=== PATIENT | female | born 1975 | race Caucasian/White ===

== ENCOUNTER 2018-04-24 11:43 | Emergency (ER) | payer OTHER ==
[~2018-04-24] VITALS: Ht 172.7 cm; Wt 70.8 kg
[2018-04-24 12:23] LABS: URINE BILIRUBIN NEGATIVE (Negative); URINE BLOOD NEGATIVE (Negative); URINE CLARITY CLEAR; URINE COLOR YELLOW; URINE GLUCOSE-RANDOM* NEGATIVE (Negative); URINE KETONES TRACE (Negative); URINE LEUKOCYTES-REFLEX TRACE (Negative); URINE NITRITE-REFLEX NEGATIVE (Negative); URINE PROTEIN (DIPSTICK) NEGATIVE (Negative); URINE SPECIFIC GRAVITY >= 1.030 (1.005-1.035); URINE UROBILINOGEN 0.2 E.U./dl (0.2-1.0)
[2018-04-24 12:40] LABS: ABSOLUTE NEUTROPHILS 2.5 thou/uL (1.4-8.2); BASOPHILS 0.5 % (0.0-2.0); EOSINOPHILS 2.4 % (0.0-3.0); HEMATOCRIT 36.5 % (37.0-47.0); HEMOGLOBIN 12.2 gm/dL (12.0-15.0); LYMPHOCYTES 34.6 % (24.0-44.0); MCH 30.6 pg (26.0-34.0); MCHC 33.3 g/dL (28.0-37.0); MCV 91.9 fL (80.0-100.0); MONOCYTES 11.8 % (1.0-8.0); PLATELET COUNT 144 thou/uL (150-400); POLYS 50.7 % (36.0-66.0); RBC 3.98 mil/uL (4.20-5.00); RDW 13.5 % (10.5-14.5); WBC 4.9 thou/uL (4.0-11.0)
[2018-04-24 12:51] LABS: CALCIUM 8.7 mg/dL (8.5-10.1); CREATININE 0.7 mg/dL (0.6-1.0); POTASSIUM 4.2 mmol/L (3.5-5.1)
[2018-04-24 12:57] LABS: ALBUMIN 3.7 g/dL (3.4-5.0); TOTAL BILIRUBIN 0.3 mg/dL (<0.1-1.0); TOTAL PROTEIN 6.8 g/dL (6.4-8.2)
[2018-04-24] MEDS ORDERED: NORCO 10-325 T1 EACH PO (16:01)
[2018-04-24] MEDS ORDERED: LEVSIN0.125 MG PO (16:01)
[2018-04-24 18:31] VITALS: BP 106/53
--- NOTE | 2018-04-25 10:57 | EKG ---
[address] [employer] [place] [address] ELECTROCARDIOGRAM REPORT Name: CHANTAL JAMES Room [facility]: [facility] [id number] ������������������ Admission: 04/24/18 ������������������ Attend Phys: Discharge: 04/24/18 ������������������ Date of : 79 Report #: [id number] ����������������������������������������������������������������� [id number] THIS REPORT FOR: //name// [facility] ED Test Date: 2018-04-24 Test Time: 13:04:13 Pat Name: CHANTAL JAMES Department: Room: Gender: F Clinic Supervisor: JV : 1975 Requested By: Mita Dunne Order Number: [id number] MD: Abelino Ambrocio Measurements Intervals [place] Rate: 60 P: 46 NC: 131 QRS: 66 QRSD: 95 T: 59 QT: 490 QTc: 490 Interpretive Statements Sinus rhythm Normal tracing No previous ECG available for comparison Electronically Signed On 04-25-2018 10:57:02 [employer] by Abelino Ambrocio [email or web address] ��������������������������������������������� <ELECTRONICALLY SIGNED> ���������������������������������������� By: Abelino Ambrocio MD, [facility] ��������������������������������������������� 04/25/18 1057 1304 1304 Abelino Ambrocio MD, FACC /EPI
== END 2018-04-24 18:32 | disposition home or self-care (01) ==
LOC: ER 11:43
PROVIDERS: Physician Assistant
DX: R19.7 Diarrhea, unspecified (principal); R10.31 Right lower quadrant pain; J45.909 Unspecified asthma, uncomplicated; F41.9 Anxiety disorder, unspecified; F32.9 Major depressive disorder, single episode, unspecified; Z91.013 Allergy to seafood; Z91.041 Radiographic dye allergy status; Z91.048 Other nonmedicinal substance allergy status; Z91.040 Latex allergy status; Z88.0 Allergy status to penicillin; Z90.49 Acquired absence of other specified parts of digestive tract